=== PATIENT | male | born 1965 | race Caucasian/White ===

== ENCOUNTER 2017-02-23 12:33 | Emergency (ER) | payer MEDICAID ==
[~2017-02-23] VITALS: Ht 177.8 cm; Wt 77.7 kg
[2017-02-23] MEDS ORDERED: SODIUM CHLORIDE FLUSH 10ML SYR IVF ONE (13:00)
[2017-02-23] MEDS ORDERED: ONDANSETRON 2MG/ML, 2ML IVPush ONE (13:00)
[2017-02-23] MEDS ORDERED: KETOROLAC 30 MG/1 ML IVPush ONE (13:00)
[2017-02-23 13:31] LABS: HEMOGLOBIN 15.6 g/dL (13.7-18.0)
[2017-02-23 13:44] LABS: ASPARTATE AMINO TRANSFERASE 17 U/L (15-37); BLOOD UREA NITROGEN 19 mg/dL (7-18)
[2017-02-23 14:43] LABS: PATH.CAST-FLAG NOT PRESENT; SPERM-FLAG NOT PRESENT; SRC-FLAG NOT PRESENT; XTAL-FLAG NOT PRESENT; YLC-FLAG NOT PRESENT
[2017-02-23] MEDS ORDERED: KETOROLAC 30 MG/1 ML ONE (14:43)
[2017-02-23] MEDS ORDERED: ONDANSETRON 2MG/ML, 2ML ONE (14:43)
[2017-02-23] MEDS ORDERED: OMNIPAQUE 350 MG/ML, 100ML BOTTLE ONE (15:38)
[2017-02-23] MEDS ORDERED: TAMSULOSIN 0.4 MG CAP.ER.24H PO ONE (16:30)
[2017-02-23] MEDS ORDERED: TAMSULOSIN 0.4 MG CAP.ER.24H ONE (17:04)
[2017-02-23 17:14] VITALS: BP 120/86
== END 2017-02-23 17:23 | disposition home or self-care (01) ==
LOC: ED 17:17
DX: N20.1 Calculus of ureter (principal); N23 Unspecified renal colic
CPT/HCPCS: 36415; 74000; 74176; 80053; 81001; 85025; 96374; 96375; 99285; J1885; J2405; Q9967